=== PATIENT | female | born 1945 | race Caucasian/White ===

== ENCOUNTER 2017-05-17 10:41 | Observation (INO) | payer OTHER, MEDICAID ==
[~2017-05-17] VITALS: Ht 162.6 cm; Wt 71.0 kg
[2017-05-17] MEDS ORDERED: ASPI81TA3 PO (12:00)
[2017-05-17 12:19] LABS: EOSINOPHILS % 0.4 % (0.0-7.0); HEMATOCRIT 31.9 % (37.0-47.0); HEMOGLOBIN 10.5 g/dl (12.0-16.0); LYMPHOCYTES # 1.3 10^3/ul (0.8-2.9); LYMPHOCYTES % 49.3 % (15.0-51.0); MEAN CORPUSCULAR HEMOGLOBIN 31.6 pg (29.0-33.0); MEAN CORPUSCULAR HGB CONC 32.9 g/dl (32.0-37.0); MEAN CORPUSCULAR VOLUME 96.1 fl (82.0-101.0); MEAN PLATELET VOLUME 10.3 fl (7.4-10.4); MONOCYTE # 0.1 10^3/ul (0.3-0.9); MONOCYTES % 4.1 % (0.0-11.0); NEUTROPHIL # 1.2 10^3/ul (1.6-7.5); NEUTROPHILS % 46.2 % (39.0-77.0); PLATELET COUNT 101 10^3/UL (140-415); RED BLOOD COUNT 3.32 10^6/ul (4.20-5.40); RED CELL DISTRIBUTION WIDTH 14.9 % (11.5-14.5); WHITE BLOOD COUNT 2.7 10^3/ul (4.8-10.8)
[2017-05-17 12:49] LABS: INR 1.01; PROTIME 13.3 Sec (12.2-14.2)
[2017-05-17 12:50] LABS: PARTIAL THROMBOPLASTIN TIME 30.5 Sec (25.0-35.0)
[2017-05-17 12:52] LABS: CALCIUM 8.8 mg/dl (8.4-10.2); CREATININE 0.79 mg/dl (0.44-1.00); POTASSIUM 3.9 mmol/L (3.5-5.1)
--- NOTE | 2017-05-17 14:13 | RADRPT ---
PROCEDURE: MRA of the Brain. CLINICAL INDICATION: Headaches TECHNIQUE: An MRI of the brain was performed on a 1.5 jalen scanner utilizing the following sequen ray: 3-D [id number] images through the cerebrovascular vasculature were obtained. Postcontrast images are obtained at the administration 20 cc of Magnevist. Multiplanar 3-D and maximum intensity projection images are provided for interpretation. Images were reviewed on a high-resolution PACS Kaseya. COMPARISON: No prior studies are available for comparison. FINDINGS: MRA of the BRAIN: The bilateral internal carotid arteries, anterior and middle cerebral arteries are normal in course and caliber. The anterior communicating artery is intact. The left vertebral artery is dominant. The distal vertebral arteries, basilar artery, basilar tip, and bilateral posterior cerebral arterie s are otherwise unremarkable. No evidence of an aneurysm or vascular malformation is seen. No hemo dynamically significant stenosis or occlusion is seen. IMPRESSION: No hemodynamically significant stenosis. RPTAT: HPNM Physician hSy Date Time Electronically viewed and signed by Physician Shy on 05/17/2017 14:13 /
--- NOTE | 2017-05-17 14:18 | RADRPT ---
PROCEDURE: MRA Neck without and with contrast. CLINICAL INDICATION: Traumatic vertebral artery dissection TECHNIQUE: An MRA of the major cervical arteries was performed on a 3.0 scanner utilizing axial 2- D [id number] sequence, and time resolved enhanced MRA. 20 mL Magnevist intravenous contrast was administered. Source and MIP images were reviewed. COMPARISON: None available FINDINGS: Susceptibility artifacts are identified in the mid - lower cervical spine on the localizer sequence, most consistent with spinal fusion hardware. The vessel origins at the aortic arch are patent. Bila teral common carotid arteries are patent. Bilateral chronic bulbs - bifurcations and internal caroti d arteries are patent without stenosis by NASCET criteria identified. There is segmental decreased s ignal at the mid cervical left vertebral artery at the V2 segment. Otherwise the vertebral arteries are patent. IMPRESSION: 1. Segmental decreased signal at the mid cervical left vertebral artery, which may be artifactual s econdary to cervical spinal fusion hardware. Dissection is not excluded. Further assessment with CTA is recommended. 2. Otherwise patent cervical arteries. RPTAT: VV .Dudley Tompkins MD, MD Date Time Electronically viewed and signed by .Dudley Tompkins MD, MD on 05/17/2017 14:18 .O/
--- NOTE | 2017-05-17 14:19 | RADRPT ---
PROCEDURE: CT Brain without contrast. CLINICAL INDICATION: Headaches status post trauma TECHNIQUE: A CT of the brain was performed on a [employer] CT scanner utilizing axial imaging f rom the skull base through the vertex without IV contrast. Multiplanar reformatted images were made . Images were reviewed on a PACS workstation. The CTDIvol is 41.74 mGy and the DLP is 630.20 mGycm . One of the following 3 dose reduction techniques were used during this CT examination: 1) Automated exposure control 2) Adjustment of the mA +/- kV according to patient size or 3) Use of iterative reconstruction technique COMPARISON: MRA head and neck 05/17/2017 FINDINGS: There is no intracranial hemorrhage, mass effect, or midline shift. No extra-axial fluid collection is seen. The ventricles and sulci are age appropriate. Mild diffuse volume loss is present. Subtle decreased attenuation is present in the bilateral centrum semiovale and periventricular white matter compatible with mild chronic microvascular ischemic disease. Mild vascular calcifications are prese nt of the intracranial internal carotid arteries. The visualized scalp and calvarium are normal. The bilateral orbits are normal. The bilateral parana kathy sinuses demonstrate soft tissue attenuation in the right anterior ethmoid air cells without air- fluid levels present. The bilateral mastoid air cells and middle ear cavities are clear. IMPRESSION: 1. No evidence of acute intracranial hemorrhage, infarcts, or acute intracranial pathology. 2. Mild chronic microvascular ischemic disease and diffuse volume loss. 3. Mild atherosclerotic vascular disease. RPTAT: HDC .Fauzia Perez MD, Date Time Electronically viewed and signed by .Fauzia Perez MD, MD on 05/17/2017 14:18 .C/
--- NOTE | 2017-05-17 14:30 | RADRPT ---
PROCEDURE: CT Cervical Spine. CLINICAL INDICATION: Neck pain status post trauma TECHNIQUE: A CT of the cervical spine was performed on a multidetector [employer] CT scanner utilizing hig h-resolution axial imaging from the skull base through the cervical thoracic junction. Sagittal, co johanna, and multiplanar reformatted images were made. CTDI 22.09 mGy and DLP 429.23 mGy-cm. One of the following 3 dose reduction techniques were used during this CT examination: 1) Automated exposure control 2) Adjustment of the mA +/- kV according to patient size or 3) Use of iterative reconstruction technique COMPARISON: No relevant priors other than CT brain and MRA head and neck same date. FINDINGS: There is straightening of the normal lordosis of the cervical spine. The patient is status post ante rior discectomy and fusion at the C5-C7 levels with intact hardware and solid interbody fusion. No e vidence for acute fractures or traumatic subluxations are present. The posterior elements are intact and well aligned. Degenerative spondylosis /enthesopathy is present at the C3-4, C4-5 , and C7-T1 levels. Moderate to severe disc space height loss is noted at the C3-4 C4-5 and C7-T1 levels. The visualized paravertebr al soft tissues demonstrate a sub centimeter nodular density in the right thyroid lobe and normal bi lateral lung apices. The specific axial levels are as follows: Occiput to C2: The visualized posterior fossa, skull base and bilateral mastoid air cells are clear . Mild atlantoaxial degenerative changes are present. The spinal canal is patent. C2-3: The intervertebral disc space height is normal. A mild 2 mm broad-based bulge is present. Mild bilateral facet arthropathy is present. AP canal dimension is 8.6 mm. This results in a mild centra l canal stenosis without subarticular recess or neural foraminal stenosis. C3-4: Moderate to severe disc space height loss and degenerative changes are present. A 3 mm centra l disc protrusion is present. AP canal dimension is 7 mm. This results in a moderate central canal s tenosis, bilateral subarticular recess stenosis, mild left and moderate to severe right neural floridalma inal stenosis. Recommend correlation with right greater than left C4 radiculopathy. C4-5: Moderate to severe disc space height loss is present. A 2 mm mild osteophytic bar and bulge i s present. Bilateral right greater than left uncovertebral osteophytes and facet arthropathy is pres ent. AP canal dimension is 6.4 mm. This results in a moderate central canal stenosis, right greater than left subarticular recess stenosis, mild left and severe right neural foraminal stenosis. Recomm end correlation with a right greater than left C5 radiculopathy. C5-6: Anterior fusion and discectomy changes are noted. A mild osteophytic ridge measuring 2 mm is present. Mild bilateral facet arthropathy and uncovertebral osteophytes are present. AP canal dimens ion is 8.1 mm. This results in a mild central canal stenosis, bilateral subarticular recess stenosis , moderate left and mild right neural foraminal stenosis. Recommend correlation with a left greater than right C6 radiculopathy. C6-7: Anterior discectomy and fusion is noted at this level with solid fusion. A mild osteophytic b ar is noted. Mild bilateral uncovertebral and facet arthropathy is present. AP canal dimension is 10 mm. The central canal, subarticular recesses and neural foramen are patent. C7-T1: Moderate to severe disc space narrowing is present. No disc bulges are present. The central canal, subarticular recess and neural foramen are patent. IMPRESSION: 1. No acute fractures or traumatic subluxations. 2. Status post anterior discectomy and intervertebral solid fusion at the C5-C7 levels. 3. 3 mm central disc protrusion at C3-4 with moderate central canal stenosis. 4. Mild broad-based bulges at the C2-3 and C4-5 levels with mild central canal stenosis at C2-3 and moderate at C4-5. 5. Multilevel osteophytic ridges at C5-6 and C6-7 with mild central canal stenosis at C5-6. 6. Multilevel neural foraminal stenosis at the C3-4 through C5-6 levels and correlate with respectiv e radiculopathy. 7. Multilevel facet and uncovertebral osteoarthropathy. RPTAT: HDC .Fauzia Perez MD, Date Time Electronically viewed and signed by .Fauzia Perez MD, on 05/17/2017 14:30 .C/
[2017-05-17] MEDS ORDERED: SOD CHLORIDE 0.9% 100 ML ONE (14:36)
[2017-05-17] MEDS ORDERED: IOHEXOL 100 ML ONE (14:36)
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
[2017-05-17] MEDS ORDERED: SOD CHLORIDE 0.9% 1,000 ML IV STA (15:02)
[2017-05-17] MEDS ORDERED: NITROGLYCERIN (SL) 0.4 MG TAB SL PRN (15:30)
[2017-05-17] MEDS ORDERED: HYDROCODONE/APAP (5/325) TAB PO PRN (15:30)
[2017-05-17] MEDS ORDERED: ACETAMINOPHEN 325 MG TAB PO PRN ×2 (15:30)
[2017-05-17] MEDS ORDERED: ALBUTEROL/IPRATROPIUM (NEB) 3 ML AMP HHN PRN (15:30)
[2017-05-17] MEDS ORDERED: MAGNESIUM HYDROXIDE 30ML CUP PO PRN (15:30)
[2017-05-17] MEDS ORDERED: LORAZEPAM 2 MG INJ IV PRN (15:30)
[2017-05-17] MEDS ORDERED: hydrALAzine 20 MG INJ IV PRN (15:30)
[2017-05-17] MEDS ORDERED: ONDANSETRON 4 MG INJ IV PRN ×2 (15:30)
[2017-05-17] MEDS ORDERED: NACL 0.9% 3 ML SYG IV SCH (15:30)
[2017-05-17] MEDS ORDERED: NA PHOSPHATE/BIPHOS 133 ML ENEMA PR PRN (15:30)
[2017-05-17] MEDS ORDERED: DOCUSATE SODIUM 100 MG CAP PO PRN (15:30)
[2017-05-17] MEDS ORDERED: IOHEXOL 350MG/ML 50 ML BTL ONE (15:44)
[2017-05-17] MEDS ORDERED: HYDROmorphONE 0.5 MG/0.5 ML SYG IV PRN (16:00)
[2017-05-17 16:30] VITALS: BP 104/51; PULSE 54; RESP 20
[2017-05-17] MEDS: SOD CHLORIDE 0.45% 1,000 ML IV SCH (16:36)
[2017-05-17 16:48] VITALS: Ht 162.6 cm; Wt 71.0 kg
[2017-05-17 17:13] LABS: ETHANOL < 10.0 mg/dl
[2017-05-17 17:26] LABS: TROPONIN-I < 0.012 ng/ml (0.00-0.12)
--- NOTE | 2017-05-17 18:38 | RADRPT ---
PROCEDURE: CT Thoracic Angiogram. CLINICAL INDICATION: Trauma, pain TECHNIQUE: CT thoracic aortic angiogram and a CT scan of the chest with contrast was performed on a multi-detector high-resolution CT scanner. The patient was scanned following the uncomplicated in travenous administration of 100 cc of Isovue 370 intravenous contrast. 2-D coronal reformatted imag es and 3-D volumetric rendered images were obtained from the axial source images. The total exam CTD I = 18/25mGy and the DLP equals 1228mGy-cm. One or more of the following dose reduction techniques were used: Automated exposure control, Adjustment of the mA and/or kV according to patient size, and /or use of iterative reconstruction technique. COMPARISON: None FINDINGS: CT thoracic aortic angiogram: Cardiac motion artifact noted limiting evaluation of the aortic root. No definite evidence of an acute aortic dissection or mediastinal hematoma. No evidence of thoracic aortic aneurysm. Aortic atherosclerosis. No intraluminal filling defects seen within the pulmonary arteries. CT chest: Bibasilar atelectasis. No pleural effusion or pneumothorax. Mild left upper lung focal scarring. Gastric surgical changes. 1.3 cm right thyroid nodule. IMPRESSION: No definite evidence of thoracic aortic dissection or pulmonary embolus. Bibasilar atelectasis. No pleural effusion or pneumothorax. .Surjit Castillo MD, MD Date Time Electronically viewed and signed by .Surjit Castillo MD, on 05/17/2017 18:38 .T/
--- NOTE | 2017-05-17 18:42 | RADRPT ---
PROCEDURE: CTA Neck. CLINICAL INDICATION: Pain, dissection TECHNIQUE: The study was performed utilizing a multidetector CT scanner. Thin cut axial sections w ere obtained through the neck with the use of 100 cc of Isovue 370 nonionic intravenous contrast mat erial. Coronal and sagittal maximal intensity projection reformations were obtained. Additional 3D volumetric renderings were created. The images were reviewed on a PACS workstation. The total CTDI vol is 18/25 mGy and the DLP is 1228 mGy-cm. One or more of the following dose reduction techniques were used: Automated exposure control, Adjustment of the mA and/or kV according to patient size, and /or use of iterative reconstruction technique. COMPARISON: Correlation neck MRA 05/17/2017 FINDINGS: No significant stenosis or evidence of vessel dissection of the bilateral common carotid, bilateral cervical internal carotid or bilateral vertebral arteries. Anterior cervical discectomy and fusion C5-C7. IMPRESSION: No significant cervical arterial stenosis or evidence of dissection. Left vertebral artery is patent. Measurements of the internal carotid arteries was made utilizing NASCET criteria. RPTAT: AA .Surjit Castillo MD, Date Time Electronically viewed and signed by .Surjit Castillo MD, on 05/17/2017 18:42 .T/
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
[2017-05-17 21:39] VITALS: BP 123/60; PULSE 51; RESP 18
[2017-05-18] VITALS (7 sets, daily range): BP systolic 123–133; BP diastolic 58–70; PULSE 47–59; RESP 17–20
[2017-05-18] MEDS: SOD CHLORIDE 0.45% 1,000 ML IV SCH ×2 (04:45→07:15)
[2017-05-18] MEDS ORDERED: PANTOPRAZOLE (EC) 40 MG TAB PO SCH (06:00)
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
[2017-05-18 08:21] LABS: EOSINOPHILS % 0.3 % (0.0-7.0); HEMATOCRIT 31.8 % (37.0-47.0); HEMOGLOBIN 10.3 g/dl (12.0-16.0); LYMPHOCYTES # 1.2 10^3/ul (0.8-2.9); LYMPHOCYTES % 40.3 % (15.0-51.0); MEAN CORPUSCULAR HEMOGLOBIN 30.9 pg (29.0-33.0); MEAN CORPUSCULAR HGB CONC 32.4 g/dl (32.0-37.0); MEAN CORPUSCULAR VOLUME 95.5 fl (82.0-101.0); MEAN PLATELET VOLUME 10.6 fl (7.4-10.4); MONOCYTE # 0.1 10^3/ul (0.3-0.9); MONOCYTES % 4.3 % (0.0-11.0); NEUTROPHIL # 1.7 10^3/ul (1.6-7.5); NEUTROPHILS % 55.1 % (39.0-77.0); PLATELET COUNT 100 10^3/UL (140-415); RED BLOOD COUNT 3.33 10^6/ul (4.20-5.40); RED CELL DISTRIBUTION WIDTH 14.8 % (11.5-14.5)
[2017-05-18 08:55] LABS: CALCIUM 8.9 mg/dl (8.4-10.2); CREATININE 0.78 mg/dl (0.44-1.00); MAGNESIUM 1.8 mg/dl (1.7-2.5); PHOSPHORUS 3.9 mg/dl (2.5-4.9); POTASSIUM 4.3 mmol/L (3.5-5.1)
[2017-05-18 08:57] LABS: CHOL/HDL RATIO 2.1 RATIO
[2017-05-18 09:17] LABS: THYROID STIMULATING HORMONE 1.78 MIU/L (0.465-4.680)
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
[2017-05-18] MEDS ORDERED: HYDR-3498 PO (13:38)
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
== END 2017-05-18 14:55 | disposition home or self-care (01) ==
LOC: E/R 10:41 → MS3 15:06 → MS4 05-18 00:05
PROVIDERS: ADMIT Internal Medicine; ATTEND Internal Medicine
DX: S13.4XXA Sprain of ligaments of cervical spine, initial encounter (principal); M25.512 Pain in left shoulder; R41.82 Altered mental status, unspecified; V43.52XA Car driver injured in collision with other type car in traffic accident, initial encounter; Y92.410 Unspecified street and highway as the place of occurrence of the external cause; M50.31 Other cervical disc degeneration, high cervical region; G47.30 Sleep apnea, unspecified; D64.9 Anemia, unspecified; Z79.82 Long term (current) use of aspirin; I48.91 Unspecified atrial fibrillation; Z98.1 Arthrodesis status; Z72.0 Tobacco use
CPT/HCPCS: 70450; 70498; 70546; 70549; 71275; 72125; 80048; 80061; 80306; 83036; 83690; 83735; 84100; 84439; 84443; 84484; 85025; 85610; 85730; 93005; 96374; 97163; 99285; G0378; J2405; J7030; Q9967; 99217